=== PATIENT | female | born 1945 | race Caucasian/White ===

== ENCOUNTER → 2020-02-12 | Outpatient (CLI) | payer MEDICARE ==
[~2020-02-12] MED LIST: ACET-1600 PO; ALBU18HF INH; CLOP75TA PO; LEVO88TA4 PO; NITR0.4T28 SL; OXYGEN NAS; RIVA20TA PO; ROSU40TA PO
== END | disposition home or self-care (01) ==
LOC: STAR 13:01
PROVIDERS: ATTEND Orthopaedic Surgery
DX: Z01.812 Encounter for preprocedural laboratory examination (principal); Z20.828 Contact with and (suspected) exposure to other viral communicable diseases; M75.21 Bicipital tendinitis, right shoulder; M75.121 Complete rotator cuff tear or rupture of right shoulder, not specified as traumatic; M75.41 Impingement syndrome of right shoulder; I45.10 Unspecified right bundle-branch block
CPT/HCPCS: 87635; 93005

== ENCOUNTER 2020-02-18 12:35 | Day surgery (SDC) | payer MEDICARE ==
[~2020-02-18] VITALS: Ht 166.4 cm; Wt 109.2 kg
[2020-02-18 13:02] VITALS: BP_DIAS 91
[2020-02-18 13:08] VITALS: BP_SYST 91
[2020-02-18] MEDS ORDERED: CHLORHEXIDINE 15 ML UDC ONE (13:14)
[2020-02-18] MEDS ORDERED: LACTATED RINGERS 1,000 ML IV SCH (13:30)
[2020-02-18] MEDS ORDERED: CHLORHEXIDINE 15 ML UDC MM ONE (13:30)
[2020-02-18] MEDS ORDERED: MIDAZOLAM 1 MG/ML, 2ML ONE (13:31)
[2020-02-18] MEDS ORDERED: FENTANYL PF 100 MCG/2ML ONE ×2 (13:31→16:31)
[2020-02-18] MEDS ORDERED: OXYcodone 5 MG/5 ML ORAL.SOL UDC PO PRN (14:00)
[2020-02-18] MEDS ORDERED: METHOCARBAMOL 1,000 MG in DEXTROSE 5% 100 ML IV PRN (14:00)
[2020-02-18] MEDS ORDERED: HYDROmorphone 1 MG/ML, 1ML INJ IVPush PRN (14:00)
[2020-02-18] MEDS ORDERED: FENTANYL PF 100 MCG/2ML IV PRN (14:00)
[2020-02-18] MEDS ORDERED: MEPERIDINE/PF 25MG/0.5ML IVPush PRN (14:00)
[2020-02-18] MEDS ORDERED: ALBUTEROL SULFATE 2.5 MG/3 ML NPPB PRN (14:00)
[2020-02-18] MEDS ORDERED: hydrALAzine 20 MG/ML, 1ML IV PRN (14:00)
[2020-02-18] MEDS ORDERED: ACETAMINOPHEN 325 MG TABLET PO PRN (14:00)
[2020-02-18] MEDS ORDERED: PROMETHAZINE 25 MG/ML, 1ML IVPush PRN (14:00)
[2020-02-18] MEDS ORDERED: LABETALOL 5MG/ML, 20ML IV PRN (14:00)
[2020-02-18] MEDS ORDERED: MIDAZOLAM 1 MG/ML, 2ML IV PRN (14:00)
[2020-02-18] MEDS ORDERED: NITROGLYCERIN SINGLE TAB 0.4 MG SL PRN (14:30)
[2020-02-18] MEDS ORDERED: ACETAMINOPHEN 500 MG TABLET PO SCH (14:30)
[2020-02-18] MEDS ORDERED: ALBUTEROL HFA 90 MCG/SPRAY INH SCH (14:30)
[2020-02-18] MEDS ORDERED: LIDOCAINE 1%-EPI 1:100K, 30ML INFIL ONE (15:06)
[2020-02-18] MEDS ORDERED: BUPIVACAINE/PF 0.5% INFIL ONE (15:08)
[2020-02-18] MEDS ORDERED: SUCCINYLCHOLINE 20 MG/ML, 10ML ONE (15:59)
[2020-02-18] MEDS ORDERED: DEXAMETHASONE 4 MG/ML, 1ML ONE (15:59)
[2020-02-18] MEDS ORDERED: PROPOFOL 10 MG/ML, 20ML ONE (15:59)
[2020-02-18] MEDS ORDERED: ONDANSETRON 2MG/ML, 2ML ONE (15:59)
[2020-02-18] MEDS ORDERED: ROCURONIUM 10MG/ML,5ML ONE (15:59)
[2020-02-18] MEDS ORDERED: BUPIVACAINE/PF 0.25% ONE (15:59)
[2020-02-18] MEDS ORDERED: CEFAZOLIN 1,000 MG ONE (15:59)
[2020-02-18] MEDS ORDERED: LIDOCAINE/PF 1%, 30ML ONE (16:16)
[2020-02-18] MEDS ORDERED: BUPIVACAINE/PF 0.5% ONE (16:16)
[2020-02-18] MEDS ORDERED: EPINEPHRINE 1 MG/ML, 1ML ONE (16:16)
[2020-02-18] MEDS ORDERED: OXYcodone 5 MG/5 ML ORAL.SOL UDC ONE (16:26)
[2020-02-18] MEDS ORDERED: MEPERIDINE/PF 25MG/ML,1ML ONE (16:31)
[2020-02-18] MEDS ORDERED: OXYC5TAB2 PEG (17:37)
[2020-02-18] MEDS ORDERED: RIVAROXABAN 20 MG TABLET PO SCH (21:00)
[2020-02-18] MEDS ORDERED: TEMPLATE NON-FORMULARY MED. ([Oxygen] 2 L) NAS SCH (21:00)
[2020-02-18] MEDS ORDERED: TEMPLATE NON-FORMULARY MED. (Rosuvastatin Calcium** (Crestor**) 40 MG) PO SCH (21:00)
[2020-02-19] MEDS ORDERED: LEVOTHYROXINE 88 MCG TABLET PO SCH (09:00)
[2020-02-19] MEDS ORDERED: CLOPIDOGREL 75 MG TABLET PO SCH (09:00)
== END 2020-02-18 18:20 | disposition home or self-care (01) ==
LOC: OUT 12:35
PROVIDERS: ATTEND Orthopaedic Surgery
DX: S46.011A Strain of muscle(s) and tendon(s) of the rotator cuff of right shoulder, initial encounter (principal); S43.431A Superior glenoid labrum lesion of right shoulder, initial encounter; M75.41 Impingement syndrome of right shoulder; M75.01 Adhesive capsulitis of right shoulder; M65.811 Other synovitis and tenosynovitis, right shoulder; M19.011 Primary osteoarthritis, right shoulder; G89.18 Other acute postprocedural pain; E78.5 Hyperlipidemia, unspecified; G47.33 Obstructive sleep apnea (adult) (pediatric); E66.01 Morbid (severe) obesity due to excess calories; Z79.01 Long term (current) use of anticoagulants; Z79.890 Hormone replacement therapy; Z79.899 Other long term (current) drug therapy; Z86.73 Personal history of transient ischemic attack (TIA), and cerebral infarction without residual deficits; Z91.018 Allergy to other foods; Z99.81 Dependence on supplemental oxygen; X58.XXXA Exposure to other specified factors, initial encounter; Y93.89 Activity, other specified; Y92.89 Other specified places as the place of occurrence of the external cause; Y99.8 Other external cause status
CPT/HCPCS: 29823; 29824; 29826; 29827; 64415; C1713; J0171; J0330; J0690; J1100; J2175; J2250; J2405; J2704; J3010; J7120